=== PATIENT | female | born 1995 | race American Indian/Alaskan Native ===

== ENCOUNTER 2018-07-26 19:42 | Emergency (ER) | payer SELFPAY ==
[2018-07-26] MEDS ORDERED: ASPIRIN PO ONE (20:06)
[2018-07-26 20:29] LABS: Basophils # (Auto) 0.1 K/mm3 (0.0-0.1); Basophils % (Auto) 1.3 % (0.0-1.8); Eosinophils # (Auto) 0.4 K/mm3 (0.0-0.4); Eosinophils % (Auto) 5.1 % (0.0-4.3); Hematocrit 40.5 % (30.3-42.9); Hemoglobin 13.3 gm/dl (10.1-14.3); Lymphocytes # (Auto) 1.9 K/mm3 (1.2-5.4); Lymphocytes % (Auto) 26.7 % (13.4-35.0); Mean Corpuscular HGB Conc 33 % (30-34); Mean Corpuscular Hemoglobin 28 pg (28-32); Mean Corpuscular Volume 87 fl (79-97); Monocytes # (Auto) 0.8 K/mm3 (0.0-0.8); Monocytes % (Auto) 10.7 % (0.0-7.3); Platelet Count 224 K/mm3 (140-440); Red Blood Count 4.66 M/mm3 (3.65-5.03); Red Cell Distribution Width 15.4 % (13.2-15.2)
[2018-07-26 21:06] LABS: BUN/Creatinine Ratio 13; Blood Urea Nitrogen 10 mg/dL (7-17); Calcium 9.4 mg/dL (8.4-10.2); Hemolysis Index 421
[2018-07-26] MEDS ORDERED: ASPIRIN ONE (22:42)
--- NOTE | 2018-07-26 22:55 | Emergency Department Report ---
ED Chest Pain HPI - General Chief Complaint: Chest Pain Stated Complaint: CX PAIN Time Seen by Provider: 07/26/18 22:10 Source: patient, family Mode of arrival: Ambulatory Limitations: No Limitations - History of Present Illness Initial Comments: This is a 22-year-old female here report that she is have the chest pain with cough and, nausea and vomiting and chills and fever for the past 4 days. Pain with cough and is 8/10. Chest feels sore with coughing. Denies any pain without coughing. Denies pain with taking a deep breath. Denies any swelling to her legs. Denies any shortness of breath abdominal or back pain. Last menstrual period was 06/26/2018. Patient says she is wheezing in and she has nasal congestion with runny nose. She denies any sore throat. Denies any headache. Denies any medical problems. Denies being on control or any recent travel for more than 3 hours by car or airplane. Denies any history of cancer or history of blood clots or any family history of blood clot. Denies any clotting disorders. Denies any recent surgery or cast or splint placement. MD Complaint: chest pain (coughing and wheezing) Onset/Timin -: days(s) Onset: other (only with coughing) Pain Location: substernal Pain Radiation: none Severity: severe Severity scale (0 -10): 8 Quality: other (sore) Consistency: intermittent Improves With: rest (and not coughing) Worsens With: other (cough) Context: recent illness re: nausea, vomting. denies: diaphoresis, dyspnea, sense of impending doom Other Symptoms: cough, fever. denies: syncope, rash, acid taste in mouth, leg swelling, palpitations, burping Treatments Prior to Arrival: none Aspirin use within the Past 7 Days: (0) No - Related Data On Oral Contraceptives: No Previous Rx's Medication Instructions Recorded Last Taken Type ALBUTEROL Inhaler (OR & NICU) 2 puff IH Q6H PRN #1 inhalation 07/27/18 Unknown Rx [ProAir HFA Inhaler] Azithromycin [Zithromax Z-MICHAEL] 250 mg PO DAILY 5 Days #1 pkg 07/27/18 Unknown Rx Cetirizine HCl [ZyrTEC] 10 mg PO QAM 14 Days #14 capsule 07/27/18 Unknown Rx Fluticasone [Flonase] 1 spray NS QDAY 14 Days #1 bottle 07/27/18 Unknown Rx Ibuprofen [Motrin] 600 mg PO Q8H PRN #12 tablet 07/27/18 Unknown Rx methylPREDNISolone [Medrol Dose 4 mg PO DAILY #1 tab.ds.pk 07/27/18 Unknown Rx Michael] Allergies Allergy/AdvReac Type Severity Reaction Status Date / Time No Known Allergies Allergy Verified 07/26/18 22:41 Heart Score - HEART Score History: Slightly suspicious EKG: Normal Age: < 45 Risk factors: No known risk factors Troponin: < normal limit HEART Score: 0 ED Review of Systems ROS: Stated complaint: CX PAIN Other details as noted in HPI Constitutional: chills, fever Eyes: denies: eye pain, eye discharge ENT: congestion. denies: ear pain, throat pain, dental pain, hearing loss Respiratory: cough, wheezing. denies: shortness of breath, SOB with exertion, SOB at rest, stridor Cardiovascular: chest pain (only with coughing). denies: palpitations, dyspnea on exertion, edema, syncope, paroxysmal nocturnal dyspnea Endocrine: no symptoms reported Gastrointestinal: nausea. denies: abdominal pain, diarrhea, constipation, hematemesis, melena, hematochezia Genitourinary: denies: urgency, dysuria, hematuria, discharge Musculoskeletal: denies: back pain, joint swelling, arthralgia Skin: denies: rash, lesions Neurological: denies: headache, weakness, numbness, paresthesias, confusion, abnormal gait, vertigo ED Past Medical Hx - Past Medical History Previous Medical History?: No - Surgical History Past Surgical History?: No - Family History Family history: hypertension - Social History Smoking Status: Former Smoker Substance Use Type: None - Medications Home Medications: Home Medications Medication Instructions Recorded Confirmed Last Taken Type ALBUTEROL Inhaler (OR & NICU) 2 puff IH Q6H PRN #1 inhalation 07/27/18 Unknown Rx [ProAir HFA Inhaler] Azithromycin [Zithromax Z-MICHAEL] 250 mg PO DAILY 5 Days #1 pkg 07/27/18 Unknown Rx Cetirizine HCl [ZyrTEC] 10 mg PO QAM 14 Days #14 capsule 07/27/18 Unknown Rx Fluticasone [Flonase] 1 spray NS QDAY 14 Days #1 bottle 07/27/18 Unknown Rx Ibuprofen [Motrin] 600 mg PO Q8H PRN #12 tablet 07/27/18 Unknown Rx methylPREDNISolone [Medrol Dose 4 mg PO DAILY #1 tab.ds.pk 07/27/18 Unknown Rx Michael] ED Physical Exam - General Limitations: No Limitations General appearance: alert, in no apparent distress - Head Head exam: Present: atraumatic, normocephalic, normal inspection - Eye Eye exam: Present: normal appearance, PERRL, EOMI Pupils: Present: normal accommodation - ENT ENT exam: Present: normal exam, normal orophraynx, mucous membranes moist, TM's normal bilaterally, normal external ear exam, other (no maxillary or frontal sinus tenderness. Nasal mucosa with clear drainage and mild congestion.) - Neck Neck exam: Present: normal inspection, full ROM, other (no C-spine tenderness). Absent: tenderness, meningismus, lymphadenopathy - Respiratory Respiratory exam: Present: wheezes (scattered wheezing to upper lung villa), other (dry cough). Absent: respiratory distress, rales, rhonchi, stridor, chest wall tenderness, accessory muscle use, decreased breath sounds, prolonged expiratory - Cardiovascular Cardiovascular Exam: Present: regular rate, normal rhythm, normal heart sounds. Absent: systolic murmur, diastolic murmur - GI/Abdominal GI/Abdominal exam: Present: soft, normal bowel sounds. Absent: distended, tenderness, guarding, rebound, rigid - Extremities Exam Extremities exam: Present: normal inspection, full ROM, normal capillary refill , other (No cce. + 2 pulses in all extremities, no neurovascular compromise). Absent: tenderness, pedal edema, joint swelling, calf tenderness - Back Exam Back exam: Present: normal inspection, full ROM, other (ambulates without any difficulties). Absent: CVA tenderness (R), CVA tenderness (L) - Neurological Exam Neurological exam: Present: alert, oriented X3, normal gait - Psychiatric Psychiatric exam: Present: normal affect - Skin Skin exam: Present: warm, dry, intact, normal color. Absent: rash ED Course Vital Signs 07/26/18 07/26/18 07/26/18 20:02 23:22 23:28 Temperature 99.0 F Pulse Rate 73 Pulse Rate [ 85 74 Anterior Bilateral Throughout] Respiratory 17 Rate Respiratory 18 18 Rate [Anterior Bilateral Throughout] Blood Pressure 104/63 O2 Sat by Pulse 99 Oximetry - Reevaluation(s) Reevaluation #1: 07/27/18 00:25 Patient given DuoNeb 1 nebulizer treatment, Decadron 10 mg IM and Motrin 600 mg by mouth. Upon reevaluation, lungs sounds are clear and she says she is feeling better. CAMACHO score - Camacho Score Age > 65: (0) No Aspirin use within the Past 7 Days: (0) No 3 or more CAD Risk Factors: (0) No 2 or more Angina events in past 24 hrs: (0) No Known CAD with more than 50% Stenosis: (0) No Elevated Cardiac Markers: (0) No ST Deviation Greater than 0.5mm: (0) No CAMACHO Score: 0 ED Medical Decision Making - Lab Data Result diagrams: 07/26/18 20:17 07/26/18 20:17 Lab Results 07/26/18 07/26/18 07/26/18 Range/Units 20:17 20:17 22:08 WBC 7.3 (4.5-11.0) K/mm3 RBC 4.66 (3.65-5.03) M/mm3 Hgb 13.3 (10.1-14.3) gm/dl Hct 40.5 (30.3-42.9) % MCV 87 (79-97) fl MCH 28 (28-32) pg MCHC 33 (30-34) % RDW 15.4 H (13.2-15.2) % Plt Count 224 (140-440) K/mm3 Lymph % (Auto) 26.7 (13.4-35.0) % [place] % (Auto) 10.7 H (0.0-7.3) % Eos % (Auto) 5.1 H (0.0-4.3) % Baso % (Auto) 1.3 (0.0-1.8) % Lymph # 1.9 (1.2-5.4) K/mm3 [place] # 0.8 (0.0-0.8) K/mm3 Eos # 0.4 (0.0-0.4) K/mm3 Baso # 0.1 (0.0-0.1) K/mm3 Seg Neutrophils % 56.2 (40.0-70.0) % Seg Neutrophils # 4.1 (1.8-7.7) K/mm3 Sodium 137 (137-145) mmol/L Potassium 5.6 H (3.6-5.0) mmol/L Chloride 104.1 (98-107) mmol/L Carbon Dioxide 26 (22-30) mmol/L Anion Gap 13 mmol/L BUN 10 (7-17) mg/dL Creatinine 0.8 (0.7-1.2) mg/dL Estimated GFR > 60 ml/min BUN/Creatinine Ratio 13 % Glucose 84 (65-100) mg/dL Calcium 9.4 (8.4-10.2) mg/dL Troponin T < 0.010 (0.00-0.029) ng/mL Urine HCG, Qual Negative (Negative) - EKG Data -: EKG Interpreted by Me (attending physician) EKG shows normal: sinus rhythm (sinus rhythm at 70 bpm) Rate: normal - EKG Data Interpretation: no acute changes, normal EKG - Radiology Data Radiology results: report reviewed Chest x-ray 2 views dictated by radiologist report reviewed by myself. No acute cardiopulmonary findings. XRay Report Signed Patient: SANDRINE CLIFTON MR#: [id number] : 1995 Acct:[id number] Age/Sex: 22 / F ADM Date: 07/26/18 Loc: ED Attending Dr: Ordering Physician: DEVAUGHN SOLIS Date of Service: 07/26/18 Procedure(s): XR chest routine 2V Accession Number(s): [id number] cc: DEVAUGHN SOLIS Fluoro Time In Minutes: FINAL REPORT EXAM: XR CHEST ROUTINE 2V HISTORY: CHEST PAIN TECHNIQUE: PA and lateral views of the chest were submitted. FINDINGS: Heart size and mediastinum appear normal. The lungs are clear. Pleural fluid is not seen. The skeletal structures reveal a dextroscoliosis of the thoracolumbar spine. IMPRESSION: No acute cardiopulmonary process. Transcribed By: RB Dictated By: ELIZABETH HESTER MD Electronically Authenticated By: ELIZABETH HESTER MD Signed Date/Time: 07/27/18 0003 DD/ 0003 TD/TT: 07/27/18 0003 - Medical Decision Making This is a 22-year-old female here report that she has been having in chest pain , cough nausea and vomiting with chills and fever over the past 4 days and she is here to be evaluated. Labs: CBC and BMP is stable urine is negative. Troponin is normal. Diagnostics: KG normal sinus rhythm at 70 bpm, chest x-ray 2 views no acute cardiopulmonary findings. This is reviewed by myself. Also dictated by radiologist. Assessment/plan Acute bronchitis-patient given DuoNeb 1 nebulizer treatment and upon reevaluation she said she felt better and her lungs sounds are clear. She was given Decadron 10 mg IM and will be discharged home on albuterol inhaler, Medrol Dosepak and Z-Michael. URI with cough and congestion-patient will be discharged home on Zyrtec and Flonase Fever in adults-Motrin 600 mg by mouth given in emergency room for low grade fever in pain and patient will be discharged home in Motrin Physical chest pain-hard score is 0 and CAMACHO is 0, PERC rule place patient at no risk for PE. I discussed with patient her diagnosis, laboratory findings, EKG and results. I discussed with her treatment plan and need to follow up with primary care physician and Monday follow-up acute bronchitis. She voiced understanding. Patient is stable, vital signs are stable she is afebrile and she says she is feeling a lot better. Coughing has diminished. Patient has no nausea or vomiting at present. She did not have any nausea or vomiting emergency room. Patient discharged home a prescription for albuterol inhaler, Z -Michael, Medrol Dosepak, Flonase and Zyrtec and to follow up with her primary care in 4 days and she voiced understanding. Discharged home with her family in stable condition - Differential Diagnosis ACS, costochondritis, PE, PNA, bronchitis, URI with cough and congestion Critical care attestation.: If time is entered above; I have spent that time in minutes in the direct care of this critically ill patient, excluding procedure time. ED Disposition Clinical Impression: URI with cough and congestion, Fever in adult Acute bronchitis Qualifiers: Bronchitis organism: other organism Qualified Code(s): J20.8 - Acute bronchitis due to other specified organisms Disposition: DC-01 TO HOME OR SELFCARE Is pt being admited?: No Does the pt Need Aspirin: No Condition: Stable Instructions: Acute Bronchitis (ED), Fever in Adults (ED), Upper Respiratory Infection (ED) Additional Instructions: Please follow-up with your primary care physician as instructed and if he did not have one please follow up at [facility] on 07/30/2018 Take medication as prescribed. If you condition worsens, return to the emergency room. Increase your water intake and take vitamin C. Referrals: PRIMARY CARE, [Primary Care Provider] - 07/30/18 [facility] [Outside] - 07/30/18 Forms: Work/School Release Form(ED)
[2018-07-26 22:58] LABS: HCG Qualitative,Urine Negative (Negative)
[2018-07-26] MEDS ORDERED: DUONEB *Not for PRN Use IH ONE (23:06)
[2018-07-26] MEDS ORDERED: DECADRON IM ONE (23:06)
[2018-07-26] MEDS ORDERED: MOTRIN PO ONE (23:07)
--- NOTE | 2018-07-27 00:04 | XRay Report ---
FINAL REPORT EXAM: XR CHEST ROUTINE 2V HISTORY: CHEST PAIN TECHNIQUE: PA and lateral views of the chest were submitted. FINDINGS: Heart size and mediastinum appear normal. The lungs are clear. Pleural fluid is not seen. The skeletal structures reveal a dextroscoliosis of the thoracolumbar spine. IMPRESSION: No acute cardiopulmonary process.
[2018-07-27 00:53] VITALS: BP 100/62
== END 2018-07-27 00:55 | disposition home or self-care (01) ==
LOC: ED 19:42
DX: J20.8 Acute bronchitis due to other specified organisms (principal); J06.9 Acute upper respiratory infection, unspecified; Z87.891 Personal history of nicotine dependence
CPT/HCPCS: 36415; 71046; 80048; 81025; 84484; 85025; 93005; 93010; 94640; 96372; 99284; J1100